=== PATIENT | female | born 1945 | race Caucasian/White ===

== ENCOUNTER → 2016-12-03 | Outpatient (CLI) | payer BC ==
[~2016-12-03] MED LIST: FSM70 PO; TETRACYCLINE; TRIA3AER NAE; [UNRECOGNIZED DRUG - OTHER]
--- NOTE | 2016-12-03 12:37 | MAMMOGRAPHY REPORT ---
UNILATERAL LEFT DIGITAL DIAGNOSTIC MAMMOGRAM TOMOSYNTHESIS WITH CAD AND TARGETED LEFT ULTRASOUND: 12/03 CLINICAL HISTORY: 70-year-old woman presents with approximate 2 month history of an abnormal sensatio n in the left nipple which she describes as "aching and sensitive". No palpable mass, skin changes o r nipple discharge. TECHNIQUE: Left breast tomosynthesis in addition to standard 2D mammography was performed. Current st udy was also evaluated with a Computer Aided Detection (CAD) system. COMPARISON: Comparison is made to exams dated: 04/12/2016 mammogram, 04/08/2015 mammogram, 04/07/2014 mammogram, 04/06/2013 mammogram, 04/04/2012 mammogram, and 04/03/2011 mammogram - [facility] [address] BREAST COMPOSITION: There are scattered areas of fibroglandular density in the left breast. FINDINGS: A triangular skin palpable marker overlies the 12:00 periareolar region and nipple of the l eft breast. There is stable architectural distortion in the subareolar left breast on the CC view wh ich effaces on the corresponding tomosynthesis images, confirming overlapping fibroglandular tissue. No suspicious mass, architectural distortion or cluster of microcalcifications is seen. Targeted ultrasound was performed along the left nipple and in the periareolar left breast. Sonograp hically normal breast tissue and sonographically normal appearance of the left nipple. No suspicious solid or cystic mass is identified. IMPRESSION: ACR BI-RADS CATEGORY 2: BENIGN, TARGETED ULTRASOUND ACR BI-RADS CATEGORY 2: BENIGN There is no mammographic or targeted sonographic evidence of malignancy. No suspicious mammographic or sonographic abnormality to explain the intermittent aching pain of the left nipple. Therefore, cl inical follow-up is recommended, as biopsy of a clinically suspicious mass should not be precluded by negative imaging. Otherwise recommend return to annual mammogram screening schedule, due in 2016. Tomosynthesis images would be useful. Approximately 10% of breast cancers are not detected with mammography. A negative mammographic report should not delay biopsy if a clinically suggestive mass is present. Mercedes Campa M.D. ay/:12/03/2016 11:41:26 Sales Operations Director: Jahaira Fine RT(R)(Angelita), [facility] [address] letter sent: Normal 1/2 BI-RADS Code: ACR BI-RADS Category 2: Benign Ultrasound BI-RADS: ACR BI-RADS Category 2: Benign
== END | disposition home or self-care (01) ==
LOC: C.MAMM 11:02
PROVIDERS: ATTEND Physician Assistant
DX: N64.4 Mastodynia (principal)

== ENCOUNTER → 2017-05-03 | Outpatient (CLI) | payer BC ==
--- NOTE | 2017-05-03 15:51 | MAMMOGRAPHY REPORT ---
BILATERAL DIGITAL SCREENING MAMMOGRAM TOMOSYNTHESIS WITH CAD: 05/03/2017 CLINICAL HISTORY: Routine screening. Patient has no complaints. TECHNIQUE: Breast tomosynthesis in addition to standard 2D mammography was performed. Current study was also evaluated with a Computer Aided Detection (CAD) system. COMPARISON: Comparison is made to exams dated: 12/03/2016 mammogram, 04/12/2016 mammogram, 04/08/2015 m ammogram, 04/07/2014 mammogram, 04/06/2013 mammogram, and 04/04/2012 mammogram - [facility] enter. BREAST COMPOSITION: There are scattered areas of fibroglandular density in both breasts. FINDINGS: No suspicious masses, calcifications, or areas of architectural distortion are noted in ei ther breast. There has been no significant interval change compared to prior exams. IMPRESSION: ACR BI-RADS CATEGORY 1: NEGATIVE There is no mammographic evidence of malignancy. A 1 year screening mammogram is recommended. The pa tient will receive written notification of the results. Approximately 10% of breast cancers are not detected with mammography. A negative mammographic report should not delay biopsy if a clinically suggestive mass is present. Marcie Orellana M.D. ah/:05/03/2017 15:11:46 Strip Cutting Machine Operator: Kristy STEWART(Rocael)(Angelita)([place]), [facility] letter sent: Normal 1/2 BI-RADS Code: ACR BI-RADS Category 1: Negative
== END | disposition home or self-care (01) ==
LOC: C.MAMM 14:53
PROVIDERS: ATTEND Obstetrics & Gynecology
DX: Z12.31 Encounter for screening mammogram for malignant neoplasm of breast (principal)

== ENCOUNTER → 2017-07-09 | Outpatient (CLI) | payer BC | END | disposition home or self-care (01) | LOC: C.PAPS 14:16 | PROVIDERS: ATTEND Obstetrics & Gynecology | DX: Z01.419 Encounter for gynecological examination (general) (routine) without abnormal findings (principal); N95.8 Other specified menopausal and perimenopausal disorders ==

== ENCOUNTER → 2017-07-24 | Outpatient (CLI) | payer BC ==
[2017-07-24 17:46] LABS: BASO % 0.4 %; BASO ABS # 0.02 K/uL (0-0.2); EOS % 0.8 %; EOS ABS # 0.04 K/uL (0-0.5); HEMATOCRIT 42.8 % (37-47); HEMOGLOBIN 14.4 g/dL (12.0-16.0); IG# 0.01 K/uL (0.00-0.02); LYMPH % 21.5 %; MEAN CELL VOLUME 86.3 fL (80-100); MEAN CORPUSCULAR HGB CONC 33.6 g/dl (32-36); MEAN PLATELET VOLUME 9.3 fL (7.4-10.4); MONO % 7.2 %; MONO ABS # 0.37 K/uL (0.11-0.59); NEUT % 69.9 %; NEUT ABS # 3.57 K/uL (1.4-6.5); PLATELET COUNT 223 K/uL (130-400); RED CELL DISTRIBUTION WIDTH CV 13.4 % (11.5-14.5); RED CELL DISTRIBUTION WIDTH SD 42.1 fL (36.4-46.3); WHITE BLOOD COUNT 5.11 K/uL (4.8-10.8)
[2017-07-24 18:01] LABS: ALT/SGPT 23 U/L (12-78); BLOOD UREA NITROGEN 23 mg/dl (7-18); CALCIUM 9.1 mg/dl (8.5-10.1); CARBON DIOXIDE 31 mmol/L (21-32); CHOLESTEROL 177 mg/dl (0-200); CREATININE 1.12 mg/dl (0.60-1.20); GLUCOSE 76 mg/dl (70-99); POTASSIUM 4.1 mmol/L (3.5-5.1); SODIUM 135 mmol/L (136-145)
[2017-07-24 18:11] LABS: ALKALINE PHOSPHATASE 64 U/L (45-117); AST/SGOT 20 U/L (15-37); LDL CHOLESTEROL CALCULATED 95 mg/dl; TOTAL PROTEIN 7.2 gm/dl (6.4-8.2)
== END | disposition home or self-care (01) ==
LOC: C.LABBFT 14:13
PROVIDERS: ATTEND Internal Medicine
DX: E55.9 Vitamin D deficiency, unspecified (principal); E78.00 Pure hypercholesterolemia, unspecified

== ENCOUNTER → 2018-01-09 | Outpatient (CLI) | payer BC ==
[~2018-01-09] MED LIST changes: +OPTIRAY 320 IV PRN
--- NOTE | 2018-01-09 12:57 | DIAGNOSTIC IMAGING REPORT ---
ABD WITH IV AND ORAL CONT (CT) CLINICAL HISTORY: 72 years-old Female presenting with R10.13 Abdominal pain, epigastric. TECHNIQUE: Multidetector CT of the abdomen was performed after the administration of oral and intravenous contrast. IV contrast: None. A dose lowering technique was used consistent with the principles of ALARA (as low as reasonably achievable). COMPARISON: None. CT DOSE (mGy.cm): The estimated cumulative dose is 151.46 mGycm. FINDINGS: Peeled Potato Inspector topogram: Unremarkable. Lung bases: Lungs and pleural spaces clear. Normal heart size. No pericardial or pleural effusion. Liver: Normal morphology. Multiple well-defined hypodensities in the liver, indeterminate but likely hepatic cysts or hamartomas. Additionally, the dominant well-defined multilobular 5.9 cm cystic lesion exophytically arising from the inferior left hepatic lobe and the lateral segment, also likely hepatic cyst or less likely biliary cystadenoma. Patent hepatic vasculature. Biliary: No intrahepatic or extrahepatic biliary ductal dilatation. Normal gallbladder. Pancreas: Normal. No peripancreatic inflammatory change or fluid. Spleen: Normal. Adrenal glands: Normal. Kidneys and ureters: Normal. No hydronephrosis. Bowel: Nondependent hypodensity in the stomach likely ingested material (series 3 image 74). No perigastric or perienteric inflammatory change. Visualized portion of the colon normal. No gross evidence of bowel wall thickening. No bowel obstruction. Peritoneal cavity: No free fluid or intraperitoneal gas. Lymph nodes: No enlarged lymph nodes in the abdomen. Vasculature: Aorta and IVC patent and normal in caliber. Abdominal wall: Normal. Musculoskeletal: Degenerative changes of the spine. IMPRESSION: 1. No acute intra-abdominal pathology. 2. Prominent 5.9 cm exophytic left hepatic lobe multilobular cystic lesion most likely represents a hepatic cyst. Less likely differential consideration includes biliary cystadenoma. Electronically signed by: Murray Desir M.D. 01/09/2018 12:55 PM Dictated Date/Time: 01/09/2018 12:47 PM
== END | disposition home or self-care (01) ==
LOC: C.CTS 11:45
PROVIDERS: ATTEND Physician Assistant Medical
DX: R10.13 Epigastric pain (principal); K76.89 Other specified diseases of liver